=== PATIENT | male | born 1985 | race Caucasian/White ===

== ENCOUNTER 2024-06-17 17:29 | Emergency (ER) | payer OTHER ==
[~2024-06-17] VITALS: Ht 170.2 cm; Wt 80.4 kg
[2024-06-17] MEDS ORDERED: MELOXICAM15 MG PO (17:47)
[2024-06-17] MEDS ORDERED: ZANAFLEX2 M1 (17:47)
[2024-06-17] MEDS ORDERED: LIDOCAINE HCL 4% 1 EACH PATCH TD ONE (18:15)
[2024-06-17] MEDS ORDERED: CYCLOBENZAPRINE HCL 10 MG TAB PO ONE (18:15)
[2024-06-17] MEDS ORDERED: OXYCODONE/APAP 10/325 TAB PO ONE (18:15)
[2024-06-17] MEDS ORDERED: METHYLPREDNISOLO4 M1 PO (18:29)
[2024-06-17] MEDS ORDERED: CYCLOBENZAPRINE5 MG PO (18:29)
[2024-06-17] MEDS ORDERED: OXYCODONE HCL5 MG PO (18:29)
[2024-06-17] MEDS ORDERED: LIDODERM1 EACH TOP (18:29)
[2024-06-17 18:39] VITALS: BP 134/70
[2024-06-17] MEDS ORDERED: LIDOCAINE PATCH REMOVAL 1 EA TD SCH (21:00)
== END 2024-06-17 18:39 | disposition home or self-care (01) ==
LOC: ED 17:29
DX: M54.50 Low back pain, unspecified (principal); Z79.899 Other long term (current) drug therapy
CPT/HCPCS: 99283; A9270